=== PATIENT | male | born 1955 | race African-American/Black ===

== ENCOUNTER 2019-06-09 10:54 | Emergency (ER) | payer OTHER ==
[2019-06-09 11:10] VITALS: TEMP 98.2; BMI 26.3
--- NOTE | 2019-06-09 11:23 | PDOC ---
History of Present Illness - General Chief Complaint: Pain Stated Complaint: RIGHT SHOULDER PAIN 3 WEEKS Time Seen by Provider: 06/09/19 11:01 Past History - Past Medical History Allergies/Adverse Reactions: Allergies Allergy/AdvReac Type Severity Reaction Status Date / Time No Known Allergies Allergy Unverified 06/09/19 10:55 Home Medications: Ambulatory Orders NK [No Known Home Medication] 06/09/19 COPD: No Other medical history: DENIES - Suicide/Smoking/Psychosocial Hx Smoking History: Current every day smoker Have you smoked in the past 12 months: Yes Number of Cigarettes Smoked Daily: 10 Information on smoking cessation initiated: Yes Hx Alcohol Use: No Drug/Substance Use Hx: No *Physical Exam - Vital Signs Last Vital Signs Temp Pulse Resp BP Pulse Ox 98.2 F 94 H 18 196/113 H 100 06/09/19 10:55 06/09/19 10:55 06/09/19 10:55 06/09/19 10:55 06/09/19 10:55 *DC/Admit/Observation/Transfer - Discharge Dispostion Condition at time of disposition: Stable - Referrals - Patient Instructions - Post Discharge Activity
--- NOTE | 2019-06-09 11:35 | PDOC ---
History of Present Illness - General History Source: Patient, Significant Other - History of Present Illness Initial Comments: 06/09/19 11:35 64 y/o man walking in with <Abdulaziz Rowan - Last Filed: 06/09/19 11:35> <Leanna Hagen - Last Filed: 06/09/19 12:30> - General Chief Complaint: Pain Stated Complaint: RIGHT SHOULDER PAIN 3 WEEKS Time Seen by Provider: 06/09/19 11:01 Attending Attestation - Resident Resident Name: Abdulaziz Rowan - ED Attending Attestation I have performed the following: I have examined & evaluated the patient, The case was reviewed & discussed with the resident, I agree w/resident's findings & plan, Exceptions are as noted - HPI HPI: This 64 year old , retired [employer] worker, walked in complaining of riight shoulder pain and all around right shoulder blade for aprox 3 weeks ago. denied any heavy lifting, pushing or trauma went to PCP office, received a shot in the shoulder with little relief Missed an apointment to Ortho MD here at [place] Took a few Motrins ths a.m.06/09/19 11:45 - Physicial Exam PE: Alert, oriented x 3, ambulating freely, pain at passive and active motion of right shoulder Pain at oalpation over the periscapular muscles and around the shoulder. Good distal sensation, good peripheral pulses 06/09/19 11:50 - Medical Decision Making Based on history and physical exam, it seems that that this patient, sustained a muscle, ligament strain plan; ; X ray shoulder, scapula, pain control and muscle relaxant 06/09/19 11:52 <Leanna Hagen S - Last Filed: 06/09/19 12:30> Past History - Past Medical History COPD: No Other medical history: DENIES - Suicide/Smoking/Psychosocial Hx Smoking History: Current every day smoker Have you smoked in the past 12 months: Yes Number of Cigarettes Smoked Daily: 10 Information on smoking cessation initiated: Yes Hx Alcohol Use: No Drug/Substance Use Hx: No <Abdulaziz Rowan - Last Filed: 06/09/19 11:35> <Leanna Hagen - Last Filed: 06/09/19 12:30> - Past Medical History Allergies/Adverse Reactions: Allergies Allergy/AdvReac Type Severity Reaction Status Date / Time No Known Allergies Allergy Unverified 06/09/19 10:55 Home Medications: Ambulatory Orders NK [No Known Home Medication] 06/09/19 *Physical Exam - Vital Signs Last Vital Signs Temp Pulse Resp BP Pulse Ox 98.2 F 94 H 18 196/113 H 100 06/09/19 10:55 06/09/19 10:55 06/09/19 10:55 06/09/19 10:55 06/09/19 10:55 <Abdulaziz Rowan - Last Filed: 06/09/19 11:35> - Vital Signs Last Vital Signs Temp Pulse Resp BP Pulse Ox 98.2 F 94 H 18 196/113 H 100 06/09/19 10:55 06/09/19 10:55 06/09/19 10:55 06/09/19 10:55 06/09/19 10:55 <XiaoRemus S - Last Filed: 06/09/19 12:30> ED Treatment Course - RADIOLOGY Radiology Studies Ordered: Category Date Time Status SCAPULA [RAD] Stat Radiology 06/09/19 11:21 Ordered SHOULDER-RIGHT [RAD] Stat Radiology 06/09/19 11:21 Ordered <MobhavinRemus S - Last Filed: 06/09/19 12:30> *DC/Admit/Observation/Transfer <Abdulaziz Rowan - Last Filed: 06/09/19 11:35> - Discharge Dispostion Decision to Admit order: No <MouchmarysolRemus S - Last Filed: 06/09/19 12:30> Diagnosis at time of Disposition: Right shoulder strain Qualifiers: Encounter type: initial encounter Qualified Code(s): S46.911A - Strain of unspecified muscle, fascia and tendon at shoulder and upper arm level, right arm , initial encounter - Discharge Dispostion Disposition: HOME Condition at time of disposition: Stable - Referrals Referrals: Mina Shane MD [Staff Physician] - - Patient Instructions Printed Discharge Instructions: How to Use a Sling, DI for Shoulder Pain Additional Instructions: Take medication as directed
[2019-06-09 11:55] VITALS: BP 183/108; PULSE 87
[2019-06-09] MEDS ORDERED: METHOCARBAMOL 500 MG TABLET PO ONE (12:05)
[2019-06-09] MEDS ORDERED: ACETAMINOPHEN 500 MG TABLET (FP) PO ONE (12:08)
[2019-06-09] MEDS ORDERED: METHOCARBAMOL 500 MG TABLET ONE (12:14)
[2019-06-09] MEDS ORDERED: ACETAMINOPHEN 500 MG TABLET (FP) ONE (12:15)
== END 2019-06-09 12:47 | disposition home or self-care (01) ==
LOC: FER 10:54
DX: S46.911A Strain of unspecified muscle, fascia and tendon at shoulder and upper arm level, right arm, initial encounter (principal); X58.XXXA Exposure to other specified factors, initial encounter; Y93.89 Activity, other specified; Y92.89 Other specified places as the place of occurrence of the external cause; F17.210 Nicotine dependence, cigarettes, uncomplicated
CPT/HCPCS: 73010-TC-FY; 73030-TC-RT-FY; 99282-25